=== PATIENT | female | born 1970 | race Caucasian/White ===

== ENCOUNTER 2021-12-13 19:56 | Emergency (ER) | payer BC ==
[2021-12-13] MEDS ORDERED: Ibuprofen 600 MG Tab PO ONE (20:38)
== END 2021-12-13 21:20 | disposition home or self-care (01) ==
LOC: DL.ED 19:56
DX: S59.902A Unspecified injury of left elbow, initial encounter (principal); I10 Essential (primary) hypertension; W18.30XA Fall on same level, unspecified, initial encounter
CPT/HCPCS: 73080; 99283; A9270

== ENCOUNTER 2022-05-11 06:01 | Day surgery (SDC) | payer BC ==
[~2022-05-11 06:01] MED LIST: Dextrose 5%-0.45% NaCl 1,000 ML IV SCH; Sodium Chloride 0.9% 10 ML Syringe FLUSH PRN; Sodium Chloride 0.9% 10 ML Syringe FLUSH SCH
[2022-05-11] MEDS ORDERED: fentaNYL 100 MCG/2 ML SDV IV ONE ×6 (06:02→07:12)
[2022-05-11] MEDS ORDERED: Midazolam 1 MG/ML 2 ML SDV IV ONE ×7 (06:02→07:08)
[2022-05-11] MEDS ORDERED: Midazolam 1 MG/ML 2 ML SDV ONE ×2 (06:31→06:33)
[2022-05-11] MEDS ORDERED: fentaNYL 100 MCG/2 ML SDV ONE (06:32)
== END 2022-05-11 09:30 | disposition home or self-care (01) ==
LOC: DL.ENDO 06:01
PROVIDERS: ATTEND Internal Medicine Gastroenterology
DX: Z12.11 Encounter for screening for malignant neoplasm of colon (principal); E66.09 Other obesity due to excess calories; F41.1 Generalized anxiety disorder; F32.A Depression, unspecified; N14.2 Nephropathy induced by unspecified drug, medicament or biological substance; Z68.27 Body mass index [BMI] 27.0-27.9, adult
CPT/HCPCS: 45378; J2250; J3010; J7042

== ENCOUNTER 2025-07-13 02:32 | Emergency (ER) | payer BC ==
[2025-07-13] MEDS ORDERED: Sodium Chloride 0.9% 10 ML Syringe FLUSH PRN (02:59)
[2025-07-13 03:10] LABS: BASOPHILS PERCENT AUTO 0.5 % (0.0-1.0); EOSINOPHILS PERCENT AUTO 4.1 % (1.0-3.0); LYMPHOCYTES PERCENT AUTO 28.4 % (20.5-50.1); MONOCYTES PERCENT AUTO 11.5 % (2-8); NEUTROPHILS PERCENT AUTO 55.5 % (42.2-75.2); PLATELET COUNT,PLT 355 10^3/uL (150-450); RED BLOOD CELL COUNT 4.68 10^6/uL (4.2-5.4); WHITE BLOOD CELL COUNT,WBC 6.6 10^3/uL (5.0-10.0)
[2025-07-13 03:34] LABS: A/G RATIO 1.1; ALANINE AMINOTRANSFERASE,ALT 55.0 U/L (14-59); ASPARTATE AMNIOTRANSFERASE,AST 27.0 U/L (15-37); BILIRUBIN TOTAL 0.2 mg/dL (0.2-1.0); BLOOD UREA NITROGEN,BUN 23.0 mg/dL (7-18); CARBON DIOXIDE,CO2 32.0 mmol/L (21-32); CHLORIDE,CL 106.0 mmol/L (98-107); CREATININE 1.02 mg/dL (0.55-1.02); EST CRCL DRUG DOSING (CG) 55.42 mL/min; GLUCOSE RANDOM 109.0 mg/dL (70-99); POTASSIUM,K 4.3 mmol/L (3.5-5.1); PROTEIN TOTAL,TP 7.8 g/dL (6.4-8.2); SODIUM,NA 145.0 mmol/L (136-145)
[2025-07-13 03:36] LABS: ESTIMATED GFR 65.0 mL/min (>=60)
[2025-07-13 03:37] LABS: LACTIC ACID 1.4 mmol/L (0.4-2.0)
[2025-07-13] MEDS: Iopamidol 612 MG/ML 100 ML Bottle IVPUSH ONE (04:10)
[2025-07-13] MEDS: Ketorolac 30 MG/ML SDV IVPUSH ONE (04:11)
[2025-07-13] MEDS: Ondansetron 4 MG/2 ML SDV IVPUSH ONE (04:11)
[2025-07-13] MEDS: Lactated Ringers 1,000 ML IV ONE (04:11)
[2025-07-13] MEDS: metroNIDAZOLE/Normal Saline 500 MG in Premix Bag 1 BAG IV ONE (05:29)
== END 2025-07-13 06:35 ==
LOC: DL.ED 02:32
DX: K81.9 Cholecystitis, unspecified (principal); E66.9 Obesity, unspecified; Z79.899 Other long term (current) drug therapy; Z68.31 Body mass index [BMI] 31.0-31.9, adult
CPT/HCPCS: 36415; 74177; 80053; 83605; 83690; 83735; 85025; 93005; 93010; 96361; 96365; 96375; 99284; 99285-25; J0696; J1836; J1885; J2405; J7120; Q9967